=== PATIENT | female | born 1975 | race Caucasian/White ===

== ENCOUNTER 2019-05-13 09:12 | Outpatient (CLI) | payer OTHER ==
[2019-05-13 09:36] LABS: BASOPHILS % (AUTO) 0.6 %; EOSINOPHILS # (AUTO) 0.2 10^3/uL (0.0-0.7); EOSINOPHILS % (AUTO) 2.5 %; HGB - HEMOGLOBIN 13.2 g/dL (12.0-16.0); LYMPHOCYTES # (AUTO) 2.2 10^3/uL (1.5-3.5); MEAN CORPUSCULAR HGB CONC 32.6 g/dL (32.0-36.0); MEAN PLATELET VOLUME 10.1 fL (7.9-10.8); MONOCYTES # (AUTO) 0.5 10^3/uL (0.0-1.0); MONOCYTES % (AUTO) 7.1 %; NEUTROPHILS # (AUTO) 4.3 10^3/uL (1.5-6.6); NEUTROPHILS % (AUTO) 59.5 %; PLT - PLATELET COUNT 260 10^3/uL (130-450); RED BLOOD COUNT 4.55 10^6/uL (4.20-5.40); WHITE BLOOD COUNT 7.2 x10^3/uL (4.8-10.8)
[2019-05-13 09:42] LABS: HCG UR QUAL NEGATIVE
== END 2019-05-13 09:13 | disposition home or self-care (01) ==
LOC: LAB 09:12
PROVIDERS: ATTEND Obstetrics & Gynecology
DX: Z30.2 Encounter for sterilization (principal)
CPT/HCPCS: 36415; 81025; 85025

== ENCOUNTER 2019-05-14 08:58 | Day surgery (SDC) | payer OTHER ==
[2019-05-14] MEDS ORDERED: PROPOFOL 200 MG/20 ML VIAL IVP ONE (08:59)
[2019-05-14] MEDS ORDERED: DEXAMETHASONE 4 MG/ML VIAL IVP ONE (08:59)
[2019-05-14] MEDS ORDERED: fentaNYL 100 MCG/2 ML VIAL IVP ONE (08:59)
[2019-05-14] MEDS ORDERED: MIDAZOLAM 2 MG/2 ML VIAL IVP ONE (08:59)
[2019-05-14] MEDS ORDERED: ROCURONIUM 50 MG/5 ML VIAL IVP ONE (08:59)
[2019-05-14] MEDS ORDERED: KETOROLAC 30 MG/ML VIAL IVP ONE (08:59)
[2019-05-14] MEDS: LACTATED RINGERS 1,000 ML IV ONE (09:19)
[2019-05-14] MEDS ORDERED: BUPIVACAINE 0.25% PF 30 ML VIAL ONE (10:13)
--- NOTE | 2019-05-14 10:22 | ANESTHESIA ---
Pre-Anesthesia VS, & Labs - Diagnosis Desires permanent sterility - Procedure Laparoscopic bilateral salpingectomy Vital Signs: Temp Pulse Resp BP Pulse Ox 36.9 C 74 16 109/74 98 05/14/19 09:07 05/14/19 09:07 05/14/19 09:07 05/14/19 09:07 05/14/19 09:07 Height 5 ft 3 in Weight (kg) 75 kg - NPO >8 hours - Is Patient ?: No Home Medications and Allergies Home Medications: Ambulatory Orders Calcium Carbonate [Calcium] 600 mg PO DAILY 05/13/19 Cholecalciferol (Vitamin D3) [Vitamin D3] 4,000 unit PO DAILY 05/13/19 Cyanocobalamin (Vitamin B-12) [Vitamin B-12] 1,000 mcg PO DAILY 05/13/19 Magnesium 250 mg PO DAILY 05/13/19 Niacin 250 mg PO DAILY 05/13/19 Psyllium Husk [Fiber] 1 tab PO DAILY 05/13/19 Ubidecarenone [Co Q10] 200 mg PO DAILY 05/13/19 Calcium Carbonate [Calcium] 600 mg PO DAILY 05/13/19 Cholecalciferol (Vitamin D3) [Vitamin D3] 4,000 unit PO DAILY 05/13/19 Cyanocobalamin (Vitamin B-12) [Vitamin B-12] 1,000 mcg PO DAILY 05/13/19 Magnesium 250 mg PO DAILY 05/13/19 Niacin 250 mg PO DAILY 05/13/19 Psyllium Husk [Fiber] 1 tab PO DAILY 05/13/19 Ubidecarenone [Co Q10] 200 mg PO DAILY 05/13/19 Allergies/Adverse Reactions: Allergies Allergy/AdvReac Type Severity Reaction Status Date / Time No Known Drug Allergies Allergy Verified 05/13/19 09:07 Anes History & Medical History - Anesthetic History Anesthesia Complications: reports: No previous complications Family history of Anesthesia Complications: Denies Family history of Malignant Hyperthermia: Denies - Medical History Cardiovascular: reports: High cholesterol Pulmonary: reports: None Gastrointestinal: reports: None Urinary: reports: Other Neuro: reports: None Musculoskeletal: reports: Chronic back pain Endocrine/Autoimmune: reports: None Blood Disorders: reports: None Skin: reports: Other Smoking Status: Former smoker Psychosocial: reports: No issues indicated - Surgical History Eyes Ears Nose Throat (EENT): Tonsil/Adenoidectomy Urologic: Nephrectomy Exam General: Alert, Oriented x3, Cooperative Dental: Other (Crowns in front) Mouth Opening: Greater than 4 Fingerbreadths Neck Mobility: Normal Mallampati classification: I Thyromental Distance: greater than 6 cm Respiratory: Lungs clear Cardiovascular: Regular rate Neurological: Normal speech Mental/Cognitive Status: Alert/Oriented X3 Cognitive Status: Within normal limits Plan Anesthesia Type: General Consent for Procedure(s) Verified and Reviewed: Yes Code Status: Attempt Resuscitation ASA classification: 2-Mild systemic disease Is this case an emergency?: No
[2019-05-14] MEDS: BUPIVACAINE 0.25% PF 30 ML VIAL SUBQ ONE ×2 (11:10)
[2019-05-14] MEDS ORDERED: HYDROmorphone 0.5 MG/0.5 ML SYRINGE IVP PRN (11:45)
[2019-05-14] MEDS ORDERED: HYDROcod/ACETAM 5/325 MG TABLET PO PRN (11:45)
[2019-05-14] MEDS ORDERED: ONDANSETRON 4 MG/2 ML VIAL IVP PRN (11:45)
[2019-05-14] MEDS: ACETAMINOPHEN 1,000 MG/100 ML 100 ML IV ONE (12:19)
--- NOTE | 2019-05-14 12:29 | OPERATIVE REPORT ---
DATE OF SERVICE: 05/14/2019 Physician: Arash Chaidez DO PREOPERATIVE DIAGNOSIS: Voluntary request for sterilization. POSTOPERATIVE DIAGNOSES 1. Voluntary request for sterilization. 2. Endometriosis. PROCEDURE PERFORMED: Laparoscopic bilateral salpingectomy. SURGEON: Arash Chaidez DO ANESTHESIA: General. ESTIMATED BLOOD LOSS: 5 mL WOUND CLASSIFICATION: 1 COUNTS: Sponge count, needle count were correct. HISTORY: For the clinical history, please see H and P. SURGICAL FINDINGS: The uterus sounded to a depth of 7 cm. The liver margins and diaphragm were unremarkable. The gallbladder was not well visualized. The appendix was unremarkable. There were adhesions with regard to the omentum, adhering anteriorly to the peritoneal wall, cephalad to the umbilicus in the area of the previous surgical scar. Both fallopian tubes and ovaries were entirely unremarkable, as the uterus. The anterior cul-de-sac was unremarkable. Right and left ovarian foci were also unremarkable. Along the uterosacral ligaments, however, there was a large area of endometriosis on the left and a smaller area on the right. At the pelvic brim right on the ureter, there were also endometrial implants noted on the left. PROCEDURE IN DETAIL: The patient was taken to the surgical suite, placed on the surgical table in supine position. General anesthesia, was placed in John stirrups, prepped and draped in the usual fashion. A timeout then took place. Once the timeout had been completed, the weighted speculum was placed in the vaginal vault and the cervix visualized. A single-tooth tenaculum was placed onto the anterior lip of the cervix. The uterus was then sounded to a depth of 7 cm. The cervix was dilated to 6 mm. The HUMI was then extended through the straightened endocervical canal into the endometrial cavity. The balloon was insufflated with saline. The single-tooth tenaculum was removed from the anterior lip of the cervix. No signs of bleeding were noted. Hemostasis followed. Surgeon's gloves were changed and attention was now placed to the abdomen. Prior to making any abdominal incisions, all areas were anesthetized with 0.25% Marcaine. A 5-mm incision was then made in the infraumbilical fold. The abdominal wall was elevated in a three-point fashion. A Veress needle extended into the abdominal cavity. The CO2 was applied and good rates flow and good intraabdominal pressures were noted. The abdomen was then insufflated with approximately 3 liters of CO2. The Veress needle was withdrawn and the 5-mm Optiview trocar and port were advanced through the umbilical incision as the abdominal wall was elevated. This was done under direct laparoscopic observation. All layers were noted entering the abdomen. The trocar and laparoscope were removed and CO2 applied, and good rates flow and good intra- abdominal pressures were noted. The laparoscope was then advanced through the obturator. A second port was then placed in the midline in the suprapubic area to accommodate a 5-mm port and a third port was placed through a previous scar from her previous surgery, lateral to the left rectus musculature. This was done under direct laparoscopic visualization. A probe was then placed into the abdomen. Laparoscopic photographic documentation then took place. The left fallopian tube was then grasped at its fimbriated end and elevated and dissected free from the mesosalpinx to the level of the cornu using the LigaSure [place] device. The tube was then transected at the cornu. This was removed through the 5-mm port and sent to pathology for evaluation. The right fallopian tube was now grasped and elevated, and again, the fallopian tube was dissected free from the mesosalpinx using the [place] LigaSure device to the level of the cornu. The tube was then transected at the cornu and removed through the 5-mm port. It was also sent to pathology for evaluation. The pelvis was then again visualized. No signs of bleeding was noted. Hemostasis followed. The CO2 was now allowed to escape from the abdomen. The ports were then removed. The skin was closed in a subcuticular fashion using 4- 0 Monocryl suture and hemostasis followed. Steri-Strips were placed and sterile dressings were placed. The HUMI was removed from the uterus. No signs of bleeder noted. Hemostasis followed. The patient was then taken to recovery room in stable condition. TD: 05/14/2019 11:58 EMILY
[2019-05-14] MEDS ORDERED: HYDROcod/ACETAM 5/325 MG TABLET ONE (12:56)
[2019-05-14 13:48] VITALS: BP 108/63
== END 2019-05-14 08:59 | disposition home or self-care (01) ==
LOC: SDS 08:58
PROVIDERS: ATTEND Obstetrics & Gynecology
PROC: 0UB74ZZ Excision of Bilateral Fallopian Tubes, Percutaneous Endoscopic Approach (ICD-10-PCS; principal; 2019-05-14 10:15)
DX: Z30.2 Encounter for sterilization (principal); N80.3 Endometriosis of pelvic peritoneum; Z87.891 Personal history of nicotine dependence
CPT/HCPCS: 58661; A9270; J0131; J7120

== ENCOUNTER 2020-04-05 20:23 | Outpatient (CLI) | payer OTHER | END 2020-04-05 20:24 | disposition home or self-care (01) | LOC: COV 20:23 | PROVIDERS: ATTEND Family Medicine | DX: Z20.828 Contact with and (suspected) exposure to other viral communicable diseases (principal) ==